=== PATIENT | male | born 1980 | race Caucasian/White ===

== ENCOUNTER → 2021-07-31 | Emergency (ER) | payer OTHER ==
[~2021-07-31] VITALS: Ht 177.8 cm; Wt 90.7 kg
[~2021-07-31] MED LIST: IBUPROFEN 400 MG TABLET ONE; IBUPROFEN 400 MG TABLET PO ONE
--- NOTE | 2021-07-31 00:36 | NUR ---
c/o left elbow pain. non radiating. 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 to bed 3. a/ox3.
--- NOTE | 2021-07-31 00:43 | NUR ---
xray at bedside
[2021-07-31 02:29] VITALS: BP 135/82
== END | disposition home or self-care (01) ==
LOC: ER 00:06
DX: S50.02XA Contusion of left elbow, initial encounter (principal); W22.01XA Walked into wall, initial encounter; Y93.89 Activity, other specified; Y92.89 Other specified places as the place of occurrence of the external cause; Y99.0 Civilian activity done for income or pay
CPT/HCPCS: 73080-TC